=== PATIENT | female | born 1995 | race Caucasian/White ===

== ENCOUNTER 2016-09-13 16:21 | Emergency (ER) | payer SELFPAY ==
[~2016-09-13 16:21] MED LIST: AMOX500T PO; IBUP800T23 PO; ULTR50TA5 PO
[2016-09-13 16:22] VITALS: BP 122/76; PULSE 78; RESP 20; TEMP 98.9; O2SAT 96
[2016-09-13 17:16] LABS: BLOOD, URINE LARGE (NEG); GLUCOSE,URINE NEG (NEG); KETONE, URINE NEG (NEG); MUCUS URINE FEW /lpf (OCC); NITRITE,URINE NEG (NEG); SQUAMOUS EPITHELIAL CELL URINE 2 /hpf (0-5); URINE COLOR YELLOW (YELLW/STRAW)
[2016-09-13 17:17] LABS: COMMENT (UR) CULT NOT INDICATED; CULTURE IF INDICATED CULT NOT INDICATED
--- NOTE | 2016-09-13 17:21 | PD ---
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 Has some dysuria too. LMP was early last month. Denies any fever, chest pain, sob, n/v, focal weakness or numbness. PFSH Past Medical History Anxiety: Yes Depression: Yes Diminished Hearing: No Tetanus Vaccination: < 5 Years Influenza Vaccination: No ?: Unknown LMP: 09/12/16 Social History Alcohol Use: Yes (OCC) Tobacco Use: Yes (1/2 PPD) Substance Use: No Allergies-Medications (Allergen,Severity, Reaction): Coded Allergies: No Known Allergies (Unverified , 09/13/16) Reported Meds & Prescriptions Reported Meds & Active Scripts Active Acetaminophen Extra Strength (Acetaminophen) 500 Mg Tab 500 Mg PO Q6H PRN Review of Systems Except as stated in HPI: all other systems reviewed are Neg Physical Exam Narrative GENERAL: 21yo F not in distress. SKIN: Focused skin assessment warm/dry. HEAD: Atraumatic. Normocephalic. EYES: Pupils equal and round. No scleral icterus. No injection or drainage. ENT: No nasal bleeding or discharge. Mucous membranes pink and moist. NECK: Trachea midline. No JVD. CARDIOVASCULAR: Regular rate and rhythm. No murmur appreciated. RESPIRATORY: No accessory muscle use. Clear to auscultation. Breath sounds equal bilaterally. GASTROINTESTINAL: Abdomen soft, non-tender, nondistended. No rebound tenderness or guarding. PELVIC: +Foreign in vaginal vault. Removed tampon and condom from vaginal vault. +Small amount of blood in vaginal vault. No purulent discharge. No CMT or adnexal tenderness bilaterally. MUSCULOSKELETAL: No obvious deformities. No clubbing. No cyanosis. No edema. NEUROLOGICAL: Awake and alert. No obvious cranial nerve deficits. Motor grossly within normal limits. Normal speech. PSYCHIATRIC: Appropriate mood and affect; insight and judgment normal. Data Data Last Documented VS Vital Signs Date Time Temp Pulse Resp B/P Pulse Ox O2 Delivery O2 Flow Rate FiO2 09/13/16 16:39 16 09/13/16 16:22 98.9 78 122/76 96 Room Air Orders Ed Urine Pregnancytest Poc (09/13/16 16:44) Urinalysis - C+S If Indicated (09/13/16 16:44) Gc And Chlamydia Pcr (09/13/16 17:18) Wet Prep Profile (09/13/16 17:18) Labs Laboratory Tests Test 09/13/16 09/13/16 16:40 17:30 Urine Color YELLOW Urine Turbidity CLEAR Urine pH 6.0 Urine Specific [place] 1.022 Urine Protein TRACE mg/dL Urine Glucose (UA) NEG mg/dL Urine Ketones NEG mg/dL Urine Occult Blood LARGE Urine Nitrite NEG Urine Bilirubin NEG Urine Urobilinogen 2.0 MG/DL Urine Leukocyte Esterase TRACE Urine RBC 1 /hpf Urine WBC 3 /hpf Urine Squamous Epithelial 2 /hpf Cells Urine Mucus FEW /lpf Microscopic Urinalysis Comment CULT NOT INDICATED Clue Cells (Wet Prep) NONE SEEN Vaginal Trichomonas (Wet Prep) NONE SEEN Vaginal Yeast (Wet Prep) NONE SEEN MDM Medical Decision Making Medical Screen Exam Complete: Yes Emergency Medical Condition: Yes Differential Diagnosis Foreign body retention vs. menstrual period Narrative Course 21yo F well appearing female here with c/o vaginal bleeding and lower abdominal cramping. Abdominal exam benign with no tenderness to palpation. Urine negative. UA showed +blood. WBC only 3. Wet prep negative. VS stable. Foreign body was removed and pt was nontoxic appearing. She does not remember when these were placed. Return precautions given. Procedures Procedure Narrative Foreign body removed from vaginal vault with ring forcep. Removed 1 condom and 1 tampon. Diagnosis Primary Impression: FOREIGN BODY IN VULVA AND VAGINA, INITIAL ENCOUNTER Patient Instructions: General Instructions Departure Forms: Tests/Procedures, Work Release Enter return to work date: September 15, 2016 Additional Instructions: Please follow up with your VERIFICATION CLERK in 1-2 days. Return to the ED if symptoms worsen. Med/Other Pt SpecificInfo: Prescription(s) given Scripts Acetaminophen (Acetaminophen Extra Strength)500 Mg [id number] Mg PO Q6H PRN (PAIN SCALE 1 TO 4) #20 TAB Ref 0 Prov:LucilaLuz Elena DO 09/13/16 Disposition: 01 DISCHARGE HOME Condition: Stable Luz Elena Gaytan DO September 13, 2016 17:21
[2016-09-13] MEDS ORDERED: ACET500T36 PO (18:55)
[2016-09-13 19:15] VITALS: BP 130/86
[2016-09-13 20:03] LABS: CHLAMYDIA PCR DETECTED (NOT DETECT); NEISSERIA PCR NOT DETECTED (NOT DETECT)
== END 2016-09-13 19:23 | disposition home or self-care (01) ==
LOC: NEPE 16:21
DX: T19.2XXA Foreign body in vulva and vagina, initial encounter (principal)
CPT/HCPCS: 81001; 84703; 87210; 87491; 87591; 99284

== ENCOUNTER 2017-01-29 13:33 | Emergency (ER) | payer SELFPAY ==
[~2017-01-29] VITALS: Ht 157.5 cm; Wt 50.6 kg
[~2017-01-29 13:33] MED LIST changes: +ACET500T36 PO; -AMOX500T PO; -IBUP800T23 PO; -ULTR50TA5 PO
[2017-01-29 13:35] VITALS: BP 162/89; PULSE 72; RESP 16; TEMP 98; O2SAT 99
--- NOTE | 2017-01-29 14:05 | PD ---
HPI . Dentalgia Chief Complaint: Oral / Dental Pain or Problem Time Seen by Provider: 13:44 Travel History International Travel<30 days: No Contact w/Intl Traveler<30days: No Traveled to known affect area: No History of Present Illness HPI 21-year-old female presents emergency department for evaluation of dentalgia. Patient states the pain started last night. She has taken naproxen with no relief. Patient is well-appearing, afebrile, no tachycardia. Patient is nontoxic appearing. There is no signs or symptoms of abscess, erythema, gingivitis or dental infection at this time. Tooth #30 does have a cavity that can be seen but no signs or symptoms of infection noted. History Past Medical Histgory Tetanus Vaccination: Unknown LMP: 01/07/17 Past Surgical History Surgical History: No Previous Surgery Social History Alcohol Use: Yes (Occ.) Tobacco Use: Yes (1/2 PPD) Allergies-Medications (Allergen,Severity, Reaction): Coded Allergies: No Known Allergies (Unverified , 01/29/17) Reported Meds & Prescriptions Reported Meds & Active Scripts Active No Active Prescriptions or Reported Medications Review of Systems Except as stated in HPI: all other systems reviewed are Neg HENT: Positive: Dental Difficulties Physical Exam Narrative GENERAL: Well-nourished, well-developed 21-year-old female patient in no acute distress. Nontoxic appearing. SKIN: Focused skin assessment warm/dry. HEAD: Normocephalic. Atraumatic. ENT: Mucosa pink and moist. She has a cavity in tooth #30. There is no associated gingival edema or erythema or exudates. No uvular edema. No uvular, palatal, or tonsillar deviation. Airway patent. Nasal turbinates appear normal without nasal blood, purulent drainage or septal hematoma. EYES: No scleral icterus. No injection or drainage. NECK: Supple, trachea midline. No JVD or lymphadenopathy. CARDIOVASCULAR: Regular rate and rhythm without murmurs, gallops, or rubs. RESPIRATORY: Breath sounds equal bilaterally. No accessory muscle use. GASTROINTESTINAL: Abdomen soft, non-tender, nondistended. MUSCULOSKELETAL: No cyanosis, or edema. Data Data Last Documented VS Vital Signs Date Time Temp Pulse Resp B/P (MAP) Pulse Ox O2 Delivery O2 Flow Rate FiO2 01/29/17 13:35 98.0 72 16 162/89 (113) 99 MDM Medical Screen Exam Complete: Yes Emergency Medical Condition: No Differential Diagnosis Dentalgia, gingivitis, dental abscess Narrative Course A medical screening exam was performed: At the time of evaluation the presenting medical condition was determined not to be of an emergent nature. The patient was given the option of receiving additional care, but declined. Patient was given options for additional community resources from which to obtain care. The Patient Has Been advised to seek medical attention for their presenting complaint. The patient has been advised to return to the ER at any time if an emergent condition develops. Primary Impression: Encounter for medical screening examination Scripts No Active Prescriptions or Reported Meds Condition: Stable Brigida Mitchell Jan 29, 2017 14:05
[2017-01-29] MEDS ORDERED: IBUP800T23 PO (17:49)
[2017-01-29] MEDS ORDERED: PERI0.126 SWISH-SPIT (17:49)
[2017-01-29] MEDS ORDERED: AMOX500C PO (17:49)
== END 2017-01-29 14:20 | disposition left against medical advice (07) ==
LOC: PHEFT 13:33
DX: K08.89 Other specified disorders of teeth and supporting structures (principal)
CPT/HCPCS: 99281

== ENCOUNTER 2017-01-29 17:20 | Emergency (ER) | payer SELFPAY ==
[~2017-01-29] VITALS: Ht 157.5 cm; Wt 50.0 kg
[2017-01-29 17:22] VITALS: BP 154/92; PULSE 67; RESP 15; TEMP 98.4; O2SAT 98
[2017-01-29] MEDS ORDERED: IBUP800T23 PO (17:49)
[2017-01-29] MEDS ORDERED: PERI0.126 SWISH-SPIT (17:49)
[2017-01-29] MEDS ORDERED: AMOX500C PO (17:49)
--- NOTE | 2017-01-29 17:51 | PD ---
HPI Chief Complaint: Oral / Dental Pain or Problem Time Seen by Provider: 17:47 Travel History International Travel<30 days: No Contact w/Intl Traveler<30days: No Traveled to known affect area: No History of Present Illness HPI 21-year-old female presents to the emergency room with complaint of right lower dental pain that started yesterday. Denies fever, vomiting. Denies sore throat , difficulty swallowing. Says pain radiates to her right ear. Has been taking ibuprofen, Aleve, Tylenol for symptom management. Took 200 mg of ibuprofen 1 hour ago. Pain is constant. No known relieving factors. No known allergies. Has no other medical complaints. Pain is moderate in severity. No other modifying factors or associated signs and symptoms. PFSH Past Medical History Anxiety: Yes Depression: Yes Diminished Hearing: No ?: Unknown Social History Alcohol Use: Yes (Occ.) Tobacco Use: Yes (04/28 PPD) Substance Use: Yes (Marijuana daily) Allergies-Medications (Allergen,Severity, Reaction): Coded Allergies: No Known Allergies (Unverified , 01/29/17) Reported Meds & Prescriptions Reported Meds & Active Scripts Active Peridex Liq (Chlorhexidine Gluconate (Mouth) Liq) 0.12% Soln 15 Ml SWISH-SPIT BID 10 Days Ibuprofen 800 Mg Tab 800 Mg PO Q6HR PRN Amoxicillin 500 Mg Cap 500 Mg PO BID 10 Days Review of Systems Except as stated in HPI: all other systems reviewed are Neg Physical Exam Narrative GENERAL: Well-nourished, well-developed female patient, in no acute distress; afebrile, nontoxic-appearing; patient is tearful and appears in pain SKIN: Warm and dry. HEAD: Atraumatic. Normocephalic. No facial edema, erythema, tenderness on palpation. No lymphadenopathy. EYES: Pupils equal and round. No scleral icterus. No injection or drainage. ENT: Mucosa pink and moist. No erythema or exudates. No uvular edema. No uvular , palatal, or tonsillar deviation. Airway patent. EARS: Bilateral pinnae and external canals appear within normal limits. Bilateral tympanic membranes without erythema, dullness or perforation. MOUTH: Mucous membranes moist, no lesions, tongue and gums appear normal. Tooth #30 with tenderness on palpation; large dental cavity noted. Surrounding gingiva is without erythema, edema, drainage. No obvious abscess noted. NECK: Trachea midline. No lymphadenopathy. CARDIOVASCULAR: Regular rate. RESPIRATORY: No accessory muscle use. GASTROINTESTINAL: Flat. MUSCULOSKELETAL: No obvious deformities. No clubbing. No cyanosis. No edema. NEUROLOGICAL: Awake and alert. Oriented 3. No obvious cranial nerve deficits. Motor grossly within normal limits. Normal speech. PSYCHIATRIC: Appropriate mood and affect; insight and judgment normal. Data Data Last Documented VS Vital Signs Date Time Temp Pulse Resp B/P (MAP) Pulse Ox O2 Delivery O2 Flow Rate FiO2 01/29/17 17:22 98.4 67 15 154/92 (112) 98 Orders Orders Ibuprofen (Motrin) (01/29/17 18:00) [facility] Medical Decision Making Medical Screen Exam Complete: Yes Emergency Medical Condition: Yes Medical Record Reviewed: Yes Differential Diagnosis Dentalgia, dental abscess, gingivitis, infected dental cavity Narrative Course 21-year-old female with dentalgia and dental cavity to tooth #30. No facial edema or erythema. Patient is afebrile and nontoxic-appearing. Denies fever, vomiting. Ibuprofen administered in the ER. Amoxicillin, Magic mouthwash, ibuprofen prescribed for home. Patient provided emergency dental information sheet. Instructed patient to follow up with dentist. Instructed patient to follow up with primary care provider. Patient verbalizes understanding and agreement with treatment plan. Patient is medically cleared and stable for discharge. Discussed reasons to return to the emergency department. Patient agrees with treatment plan. The patients vital signs are stable and the patient is stable for outpatient follow-up and treatment. Patient discharged home, stable and in no acute distress. Diagnosis Primary Impression: Toothache Additional Impression: Dental cavity Referrals: Dentist Primary Care Physician Patient Instructions: Dental Abscess (ED), Dental Caries (ED), General Instructions, Toothache (ED) Departure Forms: Tests/Procedures, Work Release Enter return to work date: Jan 31, 2017 Additional Instructions: Complete full course of antibiotics Ibuprofen or Tylenol as directed and as needed to reduce pain and inflammation Use Peridex as directed for oral hygiene Warm or cool compresses to the affected area Follow-up with dentist Follow-up with primary care provider Return to emergency department immediately with worsening of symptoms Med/Other Pt SpecificInfo: Prescription(s) given Scripts Chlorhexidine Gluconate (Mouth) Liq (Peridex Liq) 0.12% Soln 15 ML SWISH-SPIT BID for 10 Days, #300 ML 0 Refills Prov: Myah Aburto 01/29/17 Ibuprofen (Ibuprofen) 800 Mg Tab 800 MG PO Q6HR Y for PAIN, #30 TAB 0 Refills Prov: Myah Aburto 01/29/17 Amoxicillin (Amoxicillin) 500 Mg Cap 500 MG PO BID for Infection for 10 Days, #20 CAP 0 Refills Prov: Myah Aburto 01/29/17 Disposition: 01 DISCHARGE HOME Condition: Stable Myah Aburto Jan 29, 2017 17:51
[2017-01-29] MEDS ORDERED: IBUPROFEN 600 MG TAB PO ONE (18:00)
== END 2017-01-29 18:01 | disposition home or self-care (01) ==
LOC: NEPK 17:20
DX: K08.89 Other specified disorders of teeth and supporting structures (principal); K02.9 Dental caries, unspecified; Z72.0 Tobacco use
CPT/HCPCS: 99283

== ENCOUNTER 2017-04-17 13:54 | Emergency (ER) | payer SELFPAY ==
[~2017-04-17] VITALS: Ht 165.1 cm; Wt 55.0 kg
[~2017-04-17 13:54] MED LIST changes: -ACET500T36 PO; +AMOX500C PO; +IBUP1TAB7 PO; +PERI0.126 SWISH-SPIT
[2017-04-17 14:05] VITALS: BP 156/86; PULSE 82; RESP 12; TEMP 97.9; O2SAT 99
--- NOTE | 2017-04-17 15:34 | PD ---
HPI Chief Complaint: GI Complaint Time Seen by Provider: 15:19 Travel History International Travel<30 days: No Contact w/Intl Traveler<30days: No Traveled to known affect area: No History of Present Illness HPI 21-year-old female presents to the emergency department complaining of vomiting once this morning. States that she had some "clots" in her vomit but did not describe a large quantity and was nonbilious. Patient states she is also been nauseous with lower pelvic cramps for the last couple days. Patient states she is also had some mild pelvic cramping that feels like period cramps and is mild in severity. Patient states that nothing makes this better or worse. It is not associated with food or other activities. Denies radiation of this cramping pain. Denies diarrhea. Denies fever or chills. Patient states she is sexually active with one partner but is unsure if he is monogamous. Patient says she has a nonbloody booker discharge without odor. Patient denies dyspareunia. Last menstrual period approximately 1 month ago. Patient states that her periods are normally irregular. States she has been once and terminated this electively. [facility] Past Medical History Anxiety: Yes Depression: Yes Diminished Hearing: No ?: Unknown LMP: 02/2017 Past Surgical History Surgical History: No Previous Surgery Social History Alcohol Use: Yes (DAILY RECENTLY) Tobacco Use: Yes (1/2 PPD) Substance Use: Yes (Marijuana daily) Allergies-Medications (Allergen,Severity, Reaction): Coded Allergies: No Known Allergies (Unverified Adverse Reaction, Unknown, 04/17/17) Reported Meds & Prescriptions Reported Meds & Active Scripts Active Metronidazole Vaginal Gel 0.75 % Gel 1 Appl VAGINAL HS 7 Days Zofran (Ondansetron HCl) 4 Mg Tab 4 Mg PO Q8HR PRN 7 Days Peridex Liq (Chlorhexidine Gluconate (Mouth) Liq) 0.12% Soln 15 Ml SWISH-SPIT BID 10 Days Ibuprofen 800 Mg Tab 800 Mg PO Q6HR PRN Amoxicillin 500 Mg Cap 500 Mg PO BID 10 Days Review of Systems Except as stated in HPI: all other systems reviewed are Neg Physical Exam Narrative GENERAL: Well-developed well-nourished in no apparent distress SKIN: Focused skin assessment warm/dry. HEAD: Atraumatic. Normocephalic. EYES: Pupils equal and round. No scleral icterus. No injection or drainage. ENT: No nasal bleeding or discharge. Mucous membranes pink and moist. NECK: Trachea midline. No JVD. CARDIOVASCULAR: Regular rate and rhythm. No murmur appreciated. GENITOURINARY: Normal external genitalia without lesions or erythema. Vaginal vault white and yellow discharge. Cervical os was closed without drainage. No cervical motion tenderness. Uterus nontender and nonenlarged. Bilateral adnexa nontender without masses. RESPIRATORY: No accessory muscle use. Clear to auscultation. Breath sounds equal bilaterally. GASTROINTESTINAL: Abdomen soft, nondistended. Mild tenderness palpation of the lower abdominal pelvic area. No guarding or rebound tenderness. MUSCULOSKELETAL: No obvious deformities. No clubbing. No cyanosis. No edema. NEUROLOGICAL: Awake and alert. No obvious cranial nerve deficits. Motor grossly within normal limits. Normal speech. PSYCHIATRIC: Appropriate mood and affect; insight and judgment normal. Data Data Last Documented VS Vital Signs Date Time Temp Pulse Resp B/P (MAP) Pulse Ox O2 Delivery O2 Flow Rate FiO2 04/17/17 18:31 04/17/17 14:05 97.9 82 12 99 Orders Orders Ed Urine Pregnancytest Poc (04/17/17 13:59) Urinalysis - C+S If Indicated (04/17/17 15:34) Gc And Chlamydia Pcr (04/17/17 15:34) Wet Prep Profile (04/17/17 15:34) Beta Hcg (Quant/Titer) (04/17/17 15:34) Ondansetron Inj (Zofran Inj) (04/17/17 18:00) Ondansetron Odt (Zofran Odt) (04/17/17 18:30) Ed Discharge Order (04/17/17 18:23) Labs Laboratory Tests Test 04/17/17 16:10 04/17/17 16:55 Urine Color LIGHT-YELLOW Urine Turbidity CLEAR Urine pH 6.5 Urine Specific [place] 1.007 Urine Protein NEG mg/dL Urine Glucose (UA) NEG mg/dL Urine Ketones NEG mg/dL Urine Occult Blood NEG Urine Nitrite NEG Urine Bilirubin NEG Urine Urobilinogen LESS THAN 2.0 MG/DL Urine Leukocyte Esterase NEG Urine Squamous Epithelial Cells 1 /hpf Urine Bacteria RARE /hpf Microscopic Urinalysis Comment CULT NOT INDICATED Human Chorionic Gonadotropin, Quant 07240 MIU/ML Clue Cells (Wet Prep) PRESENT Vaginal Trichomonas (Wet Prep) NONE SEEN Vaginal Yeast (Wet Prep) NONE SEEN Chlamydia trachomatis DNA (PCR) NOT DETECTED Neisseria gonorrhoeae DNA (PCR) NOT DETECTED MDM Medical Decision Making Medical Screen Exam Complete: Yes Emergency Medical Condition: Yes Differential Diagnosis status, pelvic inflammatory disease, gonorrhea, chlamydia Narrative Course 21-year-old female presents to the emergency department complaining of vomiting once this morning. States that she had some "clots" in her vomit but did not describe a large quantity and was nonbilious. Patient states she is also been nauseous with lower pelvic cramps for the last couple days. Patient states she is also had some mild pelvic cramping that feels like period cramps and is mild in severity. Patient states that nothing makes this better or worse. It is not associated with food or other activities. Denies recent travel, new foods, or medications. Denies radiation of this cramping pain. Denies diarrhea. Denies fever or chills. Patient states she is sexually active with one partner but is unsure if he is monogamous. Patient says she has a nonbloody booker discharge without odor. Patient denies dyspareunia. Last menstrual period approximately 1 month ago. Patient states that her periods are normally irregular. States she has been once and terminated this electively. Physical exam findings- nonbloody vaginal discharge, no CMT or adnexal tenderness, mild TTP to suprapubic region. Abd POCUS- IUP present, heart fluttering. Point of care positive Laboratory Tests Test 04/17/17 16:10 04/17/17 16:55 Urine Color LIGHT-YELLOW Urine Turbidity CLEAR Urine pH 6.5 Urine Specific [place] 1.007 Urine Protein NEG mg/dL Urine Glucose (UA) NEG mg/dL Urine Ketones NEG mg/dL Urine Occult Blood NEG Urine Nitrite NEG Urine Bilirubin NEG Urine Urobilinogen LESS THAN 2.0 MG/DL Urine Leukocyte Esterase NEG Urine Squamous Epithelial Cells 1 /hpf Urine Bacteria RARE /hpf Microscopic Urinalysis Comment CULT NOT INDICATED Human Chorionic Gonadotropin, Quant 17604 MIU/ML Clue Cells (Wet Prep) PRESENT Vaginal Trichomonas (Wet Prep) NONE SEEN Vaginal Yeast (Wet Prep) NONE SEEN Chlamydia trachomatis DNA (PCR) NOT DETECTED Neisseria gonorrhoeae DNA (PCR) NOT DETECTED Upon further discussion patient stated that she did not want to keep this and that the father is no longer in her life. Patient is tearful regarding this findings. Case management involved to discuss options with the patient regarding treatment and evaluation of her . Patient advised to follow-up with an customs brokerage agent. Return to the emergency department for worsening or persistent symptoms. Diagnosis Primary Impression: Bacterial vaginosis Additional Impression: Qualified Codes: Z34.90 - Encounter for supervision of normal , unspecified, unspecified trimester Referrals: [facility] Safety Consultant Additional Instructions: Follow up with your primary care physician within 2-3 days. If your symptoms persist or worsen, return to the emergency department. If your cramping worsens or you develop vaginal bleeding, return to the emergency department. It is imperative you follow up with your primary care physician and customs brokerage agent . Scripts Metronidazole Vaginal Gel (Metronidazole Vaginal Gel) 0.75 % Gel 1 APPL VAGINAL HS for Infection for 7 Days, GM 0 Refills Prov: Colby Sams MD 04/17/17 Ondansetron (Zofran) 4 Mg Tab 4 MG PO Q8HR Y for NAUSEA OR VOMITING for 7 Days, TAB 0 Refills Prov: Colby Sams MD 04/17/17 Disposition: 01 DISCHARGE HOME Condition: Stable Kary Garduno Apr 17, 2017 15:34
[2017-04-17 17:08] LABS: BACTERIA, URINE RARE /hpf; BILIRUBIN, URINE NEG (NEG); BLOOD, URINE NEG (NEG); GLUCOSE,URINE NEG (NEG); KETONE, URINE NEG (NEG); NITRITE,URINE NEG (NEG); PH, URINE 6.5 (5.0-8.5); SQUAMOUS EPITHELIAL CELL URINE 1 /hpf (0-5); URINE COLOR LIGHT-YELLOW (YELLW/STRAW); URINE LEUKOCYTE ESTERASE NEG (NEG)
[2017-04-17] MEDS ORDERED: ZOFR4TAB PO (17:51)
[2017-04-17] MEDS ORDERED: ONDANSETRON HCL 4 MG/2 ML VIAL IV PUSH ONE (18:00)
[2017-04-17] MEDS ORDERED: ONDANSETRON ODT 4 MG TAB PO ONE (18:30)
[2017-04-17] MEDS ORDERED: METR0.7512 VAGINAL (18:42)
== END 2017-04-17 18:44 | disposition home or self-care (01) ==
LOC: NEPD 13:54
DX: O23.591 Infection of other part of genital tract in pregnancy, first trimester (principal); N76.0 Acute vaginitis; O99.331 Smoking (tobacco) complicating pregnancy, first trimester; F17.200 Nicotine dependence, unspecified, uncomplicated; B96.89 Other specified bacterial agents as the cause of diseases classified elsewhere; R10.2 Pelvic and perineal pain; Z3A.00 Weeks of gestation of pregnancy not specified
CPT/HCPCS: 81001; 84702; 84703; 87210; 87491; 87591; 99284

== ENCOUNTER 2017-06-14 00:06 | Emergency (ER) | payer SELFPAY ==
[~2017-06-14 00:06] MED LIST changes: +METR0.7512 VAGINAL; +ZOFR4TAB PO
[2017-06-14 00:07] VITALS: BP 148/93; PULSE 122; RESP 16; TEMP 98.3; O2SAT 100
[2017-06-14] MEDS ORDERED: ERYTOIN10 LEFT EYE (00:44)
--- NOTE | 2017-06-14 00:45 | PD ---
HPI . Eye irritation Chief Complaint: Eye Problems/Injury Time Seen by Provider: 00:26 Travel History International Travel<30 days: No Contact w/Intl Traveler<30days: No Traveled to known affect area: No History of Present Illness HPI Patient presents with a chief complaint of left eye irritation. Onset was this morning. She has a clear discharge and states that it is itching. She has not used any [id number] eyedrops. Symptoms are progressively worsening. No modifying factors. PFSH Past Medical History Anxiety: Yes Depression: Yes Diminished Hearing: No Tetanus Vaccination: Unknown ?: Not : 1 Social History Alcohol Use: Yes (DAILY RECENTLY) Tobacco Use: Yes (04/28 PPD) Substance Use: Yes (Marijuana daily) Allergies-Medications (Allergen,Severity, Reaction): Coded Allergies: No Known Allergies (Unverified Adverse Reaction, Unknown, 06/14/17) Reported Meds & Prescriptions Reported Meds & Active Scripts Active Metronidazole Vaginal Gel 0.75 % Gel 1 Appl VAGINAL HS 7 Days Zofran (Ondansetron HCl) 4 Mg Tab 4 Mg PO Q8HR PRN 7 Days Peridex Liq (Chlorhexidine Gluconate (Mouth) Liq) 0.12% Soln 15 Ml SWISH-SPIT BID 10 Days Ibuprofen 800 Mg Tab 800 Mg PO Q6HR PRN Amoxicillin 500 Mg Cap 500 Mg PO BID 10 Days Review of Systems Except as stated in HPI: all other systems reviewed are Neg General / Constitutional: No: Fever Eyes: Positive: Drainage, Redness, No: Blurred Vision Physical Exam Narrative GENERAL: Awake and alert and in no acute distress. SKIN: Warm and dry. HEAD: Normocephalic/atraumatic. EYES: Pupils are equal. Extraocular movements are intact. Left eye has conjunctival injection and some swelling. NECK: Normal range of motion. No cervical adenopathy. RESPIRATORY: Nonlabored respirations. MUSCULOSKELETAL: Atraumatic. NEUROLOGICAL: Nonfocal. PSYCHIATRIC: Appropriate mood and affect. Data Data Last Documented VS Vital Signs Date Time Temp Pulse Resp B/P (MAP) Pulse Ox O2 Delivery O2 Flow Rate FiO2 06/14/17 00:07 98.3 122 16 148/93 (111) 100 Room Air MDM Medical Decision Making Medical Screen Exam Complete: Yes Emergency Medical Condition: Yes Differential Diagnosis Differential diagnosis includes but is not limited to chemical irritation, allergic conjunctivitis, viral conjunctivitis, bacterial conjunctivitis, chronic dry eyes. Narrative Course Patient presents with irritation and redness of the left eye. Her exam is compatible with pinkeye. He'll be discharged to home with prescription for erythromycin ophthalmic ointment. Diagnosis Primary Impression: [place] eye disease of left eye Patient Instructions: Conjunctivitis (DC), General Instructions Med/Other Pt SpecificInfo: Prescription(s) given Scripts Erythromycin Opth Oint (Erythromycin Opth Oint) 5 Mg/Gm Oint 1 APPLIC LEFT EYE QID for Infection for 5 Days, #1 TUBE 0 Refills Prov: Kasey Pereira MD 06/14/17 Disposition: DISCHARGE HOME Condition: Stable Kasey Pereira MD Jun 14, 2017 00:45
[2017-06-14] MEDS ORDERED: ERYTHROMYCIN 0.5% OPTH OINT 3.5 GM TUBO LEFT EYE ONE (01:15)
== END 2017-06-14 01:37 | disposition home or self-care (01) ==
LOC: NEPE 00:06
DX: H10.022 Other mucopurulent conjunctivitis, left eye (principal); F17.200 Nicotine dependence, unspecified, uncomplicated; F12.10 Cannabis abuse, uncomplicated
CPT/HCPCS: 99283

== ENCOUNTER 2017-10-16 21:38 | Emergency (ER) | payer SELFPAY ==
[~2017-10-16] VITALS: Ht 157.5 cm; Wt 52.3 kg
[~2017-10-16 21:38] MED LIST changes: +ERYTOIN10 LEFT EYE
[2017-10-16 21:58] VITALS: BP 118/69; PULSE 74; RESP 16; TEMP 98.7; O2SAT 98
[2017-10-16] MEDS ORDERED: KETOROLAC TROMETHAMINE 30 MG/ML (IVP) VIAL IV PUSH ONE (23:15)
[2017-10-16] MEDS ORDERED: SODIUM CHLOR 0.9% 1000 ML INJ 1,000 ML IV ONE (23:15)
--- NOTE | 2017-10-16 23:21 | PD ---
HPI Chief Complaint: Abdominal Pain Time Seen by Provider: 23:02 Travel History International Travel<30 days: No Contact w/Intl Traveler<30days: No Traveled to known affect area: No History of Present Illness HPI This is a 22-year-old female who presents to the emergency department with 4 days of lower abdominal discomfort, constant, moderate severity, worsening today worse on the right side associated with yellow vaginal discharge. She says she had a surgical in April and she never got and she is concerned that there may be a problem. She has had vomiting but denies any fevers or chills. She is also had some dysuria. PFSH Past Medical History Anxiety: Yes Depression: Yes Diminished Hearing: No Tetanus Vaccination: < 5 Years Influenza Vaccination: No ?: Not LMP: "TWO WEEKS AGO" : 1 : 1 Social History Alcohol Use: Yes (DAILY RECENTLY) Tobacco Use: Yes (04/28 PPD) Substance Use: Yes (Marijuana daily) Allergies-Medications (Allergen,Severity, Reaction): Coded Allergies: No Known Allergies (Verified Adverse Reaction, Unknown, 10/16/17) Reported Meds & Prescriptions Reported Meds & Active Scripts Active Erythromycin Opth Oint 5 Mg/Gm Oint 1 Applic LEFT EYE QID 5 Days Metronidazole Vaginal Gel 0.75 % Gel 1 Appl VAGINAL HS 7 Days Zofran (Ondansetron HCl) 4 Mg Tab 4 Mg PO Q8HR PRN 7 Days Peridex Liq (Chlorhexidine Gluconate (Mouth) Liq) 0.12% Soln 15 Ml SWISH-SPIT BID 10 Days Ibuprofen 800 Mg Tab 800 Mg PO Q6HR PRN Amoxicillin 500 Mg Cap 500 Mg PO BID 10 Days Review of Systems Except as stated in HPI: all other systems reviewed are Neg Physical Exam Narrative GENERAL: Tearful, anxious appearing SKIN: Focused skin assessment warm and dry. HEAD: Atraumatic. Normocephalic. EYES: Pupils equal and round. No injection or drainage. ENT: Moist mucous membranes NECK: Trachea midline. CARDIOVASCULAR: Regular rate and rhythm. No murmur appreciated. RESPIRATORY: Clear to auscultation. Breath sounds equal bilaterally. GASTROINTESTINAL: Abdomen soft, moderately tender to palpation in the right lower quadrant with no rebound or guarding. LOC[employer]IVER: yellow discharge in the vault with cervical motion and adnexal tenderness MUSCULOSKELETAL: No obvious deformities. NEUROLOGICAL: Awake and alert. No obvious cranial nerve deficits. Moving all extremities. Data Data Last Documented VS Vital Signs Date Time Temp Pulse Resp B/P (MAP) Pulse Ox O2 Delivery O2 Flow Rate FiO2 10/16/17 21:58 98.7 74 16 118/69 (85) 98 Orders Orders Complete Blood Count With Diff (10/16/17 23:07) Comprehensive Metabolic Panel (10/16/17 23:07) ^ Insert Iv (10/16/17 23:07) Ketorolac Inj (Toradol Inj) (10/16/17 23:15) Sodium Chlor 0.9% 1000 Ml Inj (Ns 1000 M (10/16/17 23:15) Urinalysis - C+S If Indicated (10/16/17 23:07) Ed Urine Pregnancytest Poc (10/16/17 23:07) Us Pelvis Comp [facility]/Non-Preg (10/17/17 ) Us Abdomen Gallbladder (10/17/17 ) Wet Prep Profile (10/17/17 00:27) Gc And Chlamydia Pcr (10/17/17 00:27) Ceftriaxone Inj (Rocephin Inj) (10/17/17 01:15) Lidocaine 1% Inj (50 Ml) (Xylocaine 1% I (10/17/17 01:15) Labs Laboratory Tests Test 10/16/17 23:00 10/17/17 00:30 White Blood Count 9.2 TH/MM3 Red Blood Count 4.71 MIL/MM3 Hemoglobin 15.3 GM/DL Hematocrit 44.0 % Mean Corpuscular Volume 93.5 FL Mean Corpuscular Hemoglobin 32.4 PG Mean Corpuscular Hemoglobin Concent 34.6 % Red Cell Distribution Width 13.3 % Platelet Count 186 TH/MM3 Mean Platelet Volume 8.9 FL Neutrophils (%) (Auto) 71.8 % Lymphocytes (%) (Auto) 20.1 % Monocytes (%) (Auto) 6.4 % Eosinophils (%) (Auto) 1.3 % Basophils (%) (Auto) 0.4 % Neutrophils # (Auto) 6.6 TH/MM3 Lymphocytes # (Auto) 1.8 TH/MM3 Monocytes # (Auto) 0.6 TH/MM3 Eosinophils # (Auto) 0.1 TH/MM3 Basophils # (Auto) 0.0 TH/MM3 CBC Comment DIFF FINAL Differential Comment Urine Color YELLOW Urine Turbidity HAZY Urine pH 6.0 Urine Specific [place] 1.028 Urine Protein NEG mg/dL Urine Glucose (UA) NEG mg/dL Urine Ketones 20 mg/dL Urine Occult Blood NEG Urine Nitrite NEG Urine Bilirubin NEG Urine Urobilinogen 4.0 OR GREATER mg/dL Urine Leukocyte Esterase NEG Urine RBC 1 /hpf Urine WBC 1 /hpf Urine Squamous Epithelial Cells 3 /hpf Urine Mucus FEW /lpf Microscopic Urinalysis Comment CULT NOT INDICATED Blood Urea Nitrogen 9 MG/DL Creatinine 0.66 MG/DL Random Glucose 80 MG/DL Total Protein 7.9 GM/DL Albumin 4.4 GM/DL Calcium Level 9.2 MG/DL Alkaline Phosphatase 58 U/L Aspartate Amino Transf (AST/SGOT) 14 U/L Alanine Aminotransferase (ALT/SGPT) 15 U/L Total Bilirubin 2.0 MG/DL Sodium Level 138 MEQ/L Potassium Level 3.8 MEQ/L Chloride Level 104 MEQ/L Carbon Dioxide Level 23.3 MEQ/L Anion Gap 11 MEQ/L Estimat Glomerular Filtration Rate 112 ML/MIN Clue Cells (Wet Prep) PRESENT Vaginal Trichomonas (Wet Prep) NONE SEEN Vaginal Yeast (Wet Prep) NONE SEEN MDM Medical Decision Making Medical Screen Exam Complete: Yes Emergency Medical Condition: Yes Interpretation(s) Afebrile, no tachycardia, normotensive No leukocytosis Total bilirubin is 2 Urinalysis is negative for infection Wet prep demonstrates clue cells Differential Diagnosis Ovarian cyst rupture, tubo-ovarian abscess, pelvic inflammatory disease, cholelithiasis, cholecystitis, choledocholithiasis, [place] Andrew Narrative Course This is a 22-year-old female who presents to the emergency department with right -sided pelvic pain. She was placed on a monitor and an IV was established. Labs are obtained which were reassuring with the exception of the total bilirubin which was 2. Her pain is more pelvic but given her bilirubin pelvic ultrasound and a gallbladder ultrasound were obtained. Pelvic exam demonstrates discharge and physical findings consistent with pelvic inflammatory disease. If the ultrasounds are reassuring anything patient can be discharged home on antibiotic therapy. Kathya Espinoza MD Oct 16, 2017 23:21
[2017-10-16 23:24] LABS: AUTOMATED NEUTROPHIL # 6.6 TH/MM3 (1.8-7.7); BASOPHIL % 0.4 % (0.0-2.0); EOSINOPHIL # 0.1 TH/MM3 (0-0.4); EOSINOPHIL % 1.3 % (0.0-4.0); HEMOGLOBIN 15.3 GM/DL (11.6-15.3); LYMPH % 20.1 % (9.0-44.0); LYMPHOCYTE # 1.8 TH/MM3 (1.0-4.8); MEAN CELL VOLUME 93.5 FL (80.0-100.0); MEAN CORPUSCULAR HEMOGLOBIN 32.4 PG (27.0-34.0); MEAN CORPUSCULAR HGB CONC 34.6 % (32.0-36.0); MEAN PLATELET VOLUME 8.9 FL (7.0-11.0); MONO % 6.4 % (0.0-8.0); MONOCYTE # 0.6 TH/MM3 (0-0.9); NEUT % 71.8 % (16.0-70.0); PLATELET COUNT 186 TH/MM3 (150-450); RED BLOOD COUNT 4.71 MIL/MM3 (4.00-5.30); RED CELL DISTRIBUTION WIDTH 13.3 % (11.6-17.2); WHITE BLOOD COUNT 9.2 TH/MM3 (4.0-11.0)
[2017-10-16 23:29] LABS: BILIRUBIN, URINE NEG (NEG); BLOOD, URINE NEG (NEG); GLUCOSE,URINE NEG (NEG); KETONE, URINE 20 mg/dL (NEG); MUCUS URINE FEW /lpf (OCC); NITRITE,URINE NEG (NEG); SQUAMOUS EPITHELIAL CELL URINE 3 /hpf (0-5); URINE COLOR YELLOW (YELLW/STRAW); URINE LEUKOCYTE ESTERASE NEG (NEG)
[2017-10-16 23:47] LABS: ALBUMIN 4.4 GM/DL (3.4-5.0); AST (GOT) 14 U/L (15-37); BICARBONATE 23.3 MEQ/L (21.0-32.0); BLOOD UREA NITROGEN 9 MG/DL (7-18); CALCIUM 9.2 MG/DL (8.5-10.1); CHLORIDE 104 MEQ/L (98-107); CREATININE 0.66 MG/DL (0.50-1.00); GLOMERULAR FILTRATION RATE 112 ML/MIN (>89); GLUCOSE,RANDOM 80 MG/DL (74-106); SODIUM (NA) 138 MEQ/L (136-145)
[2017-10-16 23:49] LABS: ALT (GPT) 15 U/L (10-53)
[2017-10-16 23:50] LABS: ALKALINE PHOSPHATASE 58 U/L (45-117); TOTAL PROTEIN 7.9 GM/DL (6.4-8.2)
[2017-10-17] MEDS ORDERED: LIDOCAINE HCL 1% 50 ML VIAL IM ONE (01:15)
[2017-10-17] MEDS ORDERED: cefTRIAXone 250 MG VIAL IM ONE (01:15)
--- NOTE | 2017-10-17 01:32 | RADRPT ---
EXAM DATE: 10/17/2017 1:10 AM EDT AGE/SEX: 22 years / Female INDICATIONS: Pelvic pain. Vomiting. CLINICAL DATA: This is the patient's initial encounter. Patient reports that signs and symptoms have been present for 4 - 6 days and indicates a pain score of 8/10. MEDICAL/SURGICAL HISTORY: . Tobacco use. . . COMPARISON: No prior exams available for comparison. No external comparison. MEASUREMENTS: Uterus:__9.7 x 4.1 x 5.0 cm Endometrial Stripe:__9 mm Right Ovary:__ 3.7 x 2.7 x 2.7 cm Left Ovary:__ 3.0 x 1.5 x 1.9 cm FINDINGS: Uterus: The myometrium has homogeneous echotexture without mass. Endometrial Stripe: The endometrial stripe displays homogeneous echotexture. Right Ovary: Ovary contains no mass or significant cystic lesion. Left Ovary: Ovary contains no mass or significant cystic lesion. Fluid: No free fluid. Other: None. CONCLUSION: 1. Unremarkable exam. The uterus and ovaries are within normal limits. Electronically signed by: Doug Munguia MD 10/17/2017 1:31 AM EDT
--- NOTE | 2017-10-17 01:32 | RADRPT ---
EXAM DATE: 10/17/2017 1:13 AM EDT AGE/SEX: 22 years / Female INDICATIONS: Right upper quadrant pain. CLINICAL DATA: This is the patient's initial encounter. Patient reports that signs and/or symptoms h ave been present for 4 - 6 days and indicates a pain score of 8/10. MEDICAL/SURGICAL HISTORY: . Tobacco use. . . COMPARISON: No prior exams available for comparison. No external comparison. MEASUREMENTS: Liver:__ 14.3 cm. Common Bile Duct:__ 2mm. FINDINGS: Liver: Normal echotexture without focal lesion or ductal dilatation. Portal Vein: Hepatopedal flow seen in portal vein. Common Duct: No intraluminal mass or stone visualized. Gallbladder: Demonstrates no wall thickening or pericholecystic fluid. No stones visualized. Pancreas: The visualized portions are within normal limits Right Kidney: Normal echotexture and cortical thickness. No mass or hydronephrosis. Other: None. CONCLUSION: 1. Unremarkable exam. The gallbladder is within normal limits with no evidence of cholelithiasis. Electronically signed by: Doug Munguia MD 10/17/2017 1:30 AM EDT
[2017-10-17] MEDS ORDERED: DICL75TA PO (02:23)
[2017-10-17] MEDS ORDERED: DOXY100C PO (02:23)
--- NOTE | 2017-10-17 02:26 | PD ---
Physical Exam Date Seen by Provider: Oct 17, 2017 Time Seen by Provider: 02:23 Narrative GENERAL: This is a well-nourished, well-developed patient, in no apparent distress. SKIN: No rashes, ecchymoses or lesions. Warm and dry. HEAD: Atraumatic. Normocephalic. EYES: PERRL, EOMI, no discharge or injection. No scleral icterus. EARS: Clear NOSE: Nasal turbinates appear normal. THROAT: Mucosa pink and moist. Airway patent. NECK: Trachea midline. supple, moves head freely. LUNGS: Clear to auscultation. CV: Regular in rhythm. ABDOMEN: Soft nontender. EXT: No clubbing cyanosis or edema. Data Data Last Documented VS Vital Signs Date Time Temp Pulse Resp B/P (MAP) Pulse Ox O2 Delivery O2 Flow Rate FiO2 10/16/17 21:58 98.7 74 16 118/69 (85) 98 Orders Orders Complete Blood Count With Diff (10/16/17 23:07) Comprehensive Metabolic Panel (10/16/17 23:07) ^ Insert Iv (10/16/17 23:07) Ketorolac Inj (Toradol Inj) (10/16/17 23:15) Sodium Chlor 0.9% 1000 Ml Inj (Ns 1000 M (10/16/17 23:15) Urinalysis - C+S If Indicated (10/16/17 23:07) Ed Urine Pregnancytest Poc (10/16/17 23:07) Us Pelvis Comp Separator Inserter/Non-Preg (10/17/17 ) Us Abdomen Gallbladder (10/17/17 ) Wet Prep Profile (10/17/17 00:27) Gc And Chlamydia Pcr (10/17/17 00:27) Ceftriaxone Inj (Rocephin Inj) (10/17/17 01:15) Lidocaine 1% Inj (50 Ml) (Xylocaine 1% I (10/17/17 01:15) Azithromycin Powd Pack (Zithromax Powd P (10/17/17 02:30) Labs Laboratory Tests Test 10/16/17 23:00 10/17/17 00:30 White Blood Count 9.2 TH/MM3 Red Blood Count 4.71 MIL/MM3 Hemoglobin 15.3 GM/DL Hematocrit 44.0 % Mean Corpuscular Volume 93.5 FL Mean Corpuscular Hemoglobin 32.4 PG Mean Corpuscular Hemoglobin Concent 34.6 % Red Cell Distribution Width 13.3 % Platelet Count 186 TH/MM3 Mean Platelet Volume 8.9 FL Neutrophils (%) (Auto) 71.8 % Lymphocytes (%) (Auto) 20.1 % Monocytes (%) (Auto) 6.4 % Eosinophils (%) (Auto) 1.3 % Basophils (%) (Auto) 0.4 % Neutrophils # (Auto) 6.6 TH/MM3 Lymphocytes # (Auto) 1.8 TH/MM3 Monocytes # (Auto) 0.6 TH/MM3 Eosinophils # (Auto) 0.1 TH/MM3 Basophils # (Auto) 0.0 TH/MM3 CBC Comment DIFF FINAL Differential Comment Urine Color YELLOW Urine Turbidity HAZY Urine pH 6.0 Urine Specific [place] 1.028 Urine Protein NEG mg/dL Urine Glucose (UA) NEG mg/dL Urine Ketones 20 mg/dL Urine Occult Blood NEG Urine Nitrite NEG Urine Bilirubin NEG Urine Urobilinogen 4.0 OR GREATER mg/dL Urine Leukocyte Esterase NEG Urine RBC 1 /hpf Urine WBC 1 /hpf Urine Squamous Epithelial Cells 3 /hpf Urine Mucus FEW /lpf Microscopic Urinalysis Comment CULT NOT INDICATED Blood Urea Nitrogen 9 MG/DL Creatinine 0.66 MG/DL Random Glucose 80 MG/DL Total Protein 7.9 GM/DL Albumin 4.4 GM/DL Calcium Level 9.2 MG/DL Alkaline Phosphatase 58 U/L Aspartate Amino Transf (AST/SGOT) 14 U/L Alanine Aminotransferase (ALT/SGPT) 15 U/L Total Bilirubin 2.0 MG/DL Sodium Level 138 MEQ/L Potassium Level 3.8 MEQ/L Chloride Level 104 MEQ/L Carbon Dioxide Level 23.3 MEQ/L Anion Gap 11 MEQ/L Estimat Glomerular Filtration Rate 112 ML/MIN Clue Cells (Wet Prep) PRESENT Vaginal Trichomonas (Wet Prep) NONE SEEN Vaginal Yeast (Wet Prep) NONE SEEN MDM Medical Record Reviewed: Yes Supervised Visit with ROSE: Yes Interpretation(s) Laboratory Tests Test 10/16/17 23:00 10/17/17 00:30 White Blood Count 9.2 TH/MM3 Red Blood Count 4.71 MIL/MM3 Hemoglobin 15.3 GM/DL Hematocrit 44.0 % Mean Corpuscular Volume 93.5 FL Mean Corpuscular Hemoglobin 32.4 PG Mean Corpuscular Hemoglobin Concent 34.6 % Red Cell Distribution Width 13.3 % Platelet Count 186 TH/MM3 Mean Platelet Volume 8.9 FL Neutrophils (%) (Auto) 71.8 % Lymphocytes (%) (Auto) 20.1 % Monocytes (%) (Auto) 6.4 % Eosinophils (%) (Auto) 1.3 % Basophils (%) (Auto) 0.4 % Neutrophils # (Auto) 6.6 TH/MM3 Lymphocytes # (Auto) 1.8 TH/MM3 Monocytes # (Auto) 0.6 TH/MM3 Eosinophils # (Auto) 0.1 TH/MM3 Basophils # (Auto) 0.0 TH/MM3 CBC Comment DIFF FINAL Differential Comment Urine Color YELLOW Urine Turbidity HAZY Urine pH 6.0 Urine Specific [place] 1.028 Urine Protein NEG mg/dL Urine Glucose (UA) NEG mg/dL Urine Ketones 20 mg/dL Urine Occult Blood NEG Urine Nitrite NEG Urine Bilirubin NEG Urine Urobilinogen 4.0 OR GREATER mg/dL Urine Leukocyte Esterase NEG Urine RBC 1 /hpf Urine WBC 1 /hpf Urine Squamous Epithelial Cells 3 /hpf Urine Mucus FEW /lpf Microscopic Urinalysis Comment CULT NOT INDICATED Blood Urea Nitrogen 9 MG/DL Creatinine 0.66 MG/DL Random Glucose 80 MG/DL Total Protein 7.9 GM/DL Albumin 4.4 GM/DL Calcium Level 9.2 MG/DL Alkaline Phosphatase 58 U/L Aspartate Amino Transf (AST/SGOT) 14 U/L Alanine Aminotransferase (ALT/SGPT) 15 U/L Total Bilirubin 2.0 MG/DL Sodium Level 138 MEQ/L Potassium Level 3.8 MEQ/L Chloride Level 104 MEQ/L Carbon Dioxide Level 23.3 MEQ/L Anion Gap 11 MEQ/L Estimat Glomerular Filtration Rate 112 ML/MIN Clue Cells (Wet Prep) PRESENT Vaginal Trichomonas (Wet Prep) NONE SEEN Vaginal Yeast (Wet Prep) NONE SEEN Last 24 hours Impressions Pelvis Ultrasound 10/17/17 Signed Impressions: CONCLUSION: 1. Unremarkable exam. The uterus and ovaries are within normal limits. Gall Bladder Ultrasound 10/17/17 Signed Impressions: CONCLUSION: 1. Unremarkable exam. The gallbladder is within normal limits with no evidence of cholelithiasis. Differential Diagnosis . Narrative Course Patient's pelvic ultrasound and gallbladder ultrasound is unrevealing. There are within normal limits. Patient is nontoxic-appearing. She is given 1 g of Zithromax p.o. now and a prescription for doxycycline for the next 14 days. This is PID, hyperbilirubinemia Diagnosis Primary Impression: PID Additional Impression: Hyperbilirubinemia Patient Instructions: General Instructions Additional Instruction: Rest. Increase fluids. Doxycycline and diclofenac. Up with a solar development engineer in 1 week. Follow-up with a primary care doctor in 1 week. Return to the ER if any problems. Pelvic rest for 1 week. Med/Other Pt SpecificInfo: Prescription(s) given Scripts Diclofenac Sodium DR (Diclofenac Sodium DR) 75 Mg Tabdr 75 MG PO BID, #14 TAB 0 Refills Prov: Kathya Espinoza MD 10/17/17 Doxycycline Hyclate (Doxycycline Hyclate) 100 Mg Cap 100 MG PO BID for Infection, #28 CAP 0 Refills Prov: Kathya Espinoza MD 10/17/17 Disposition: 01 DISCHARGE HOME Condition: Stable John Garcia Oct 17, 2017 02:25
[2017-10-17 02:27] VITALS: BP 128/81
[2017-10-17] MEDS ORDERED: AZITHROMYCIN PWD FOR SUSP 1 GM PACKET PO ONE (02:30)
== END 2017-10-17 02:57 | disposition home or self-care (01) ==
LOC: NEPD 21:38
DX: N73.9 Female pelvic inflammatory disease, unspecified (principal); E80.6 Other disorders of bilirubin metabolism; F12.90 Cannabis use, unspecified, uncomplicated; F17.200 Nicotine dependence, unspecified, uncomplicated
CPT/HCPCS: 76705; 76856; 80053; 81001; 84703; 85025; 87210; 87491; 87591; 96361; 96372; 96374; 99284; J0696; J1885; J7030